=== PATIENT | male | born 1950 | race Caucasian/White ===

== ENCOUNTER 2018-12-16 19:14 | Emergency (ER) | payer MEDICARE, OTHER ==
[~2018-12-16] VITALS: Ht 175.3 cm; Wt 80.3 kg
[2018-12-16] MEDS ORDERED: IPRATRPIUM/ALBUTEROL 0.5/2.5MG 3 ML NEBU. NEB ONE (19:30)
--- NOTE | 2018-12-16 19:32 | PHYS DOC ---
Past History Past Medical History: COPD, Depression, Diabetes, High Cholesterol, Hypertension, Schizophrenia, Other Additional Past Medical Histor: diverticulosis, cholecystitis Smoking: Cigarettes Alcohol Use: None Drug Use: None Adult General Chief Complaint Chief Complaint: PSYCH EVALUATION HPI HPI Patient is a 68-year-old male presents for clearance for [facility]. History is limited from the patient due to his baseline mental function. Does note that he has some chest congestion. Denies any specific chest pain. Nothing seems to make this better or worse. He is uncertain as to why he is in the emergency department tonight. From information from [facility], patient feels he is having a mental breakdown, asking for Haldol, he burned himself with a cigarette because he is feeling suicidal, disorganized, anxious, worried. This started approximately 2-3 days ago.[] Review of Systems Review of Systems Constitutional: Denies fever or chills [] Eyes: Denies change in visual acuity, redness, or eye pain [] HENT: Denies nasal congestion or sore throat [] Respiratory: See history of present illness, he took an "albuterol and Haldol" breathing treatment prior to leaving the [facility] care facility where he normally resides[] Cardiovascular: No chest pain or palpitations[] GI: Denies abdominal pain, nausea, vomiting, bloody stools or diarrhea [] : Denies dysuria or hematuria [] Musculoskeletal: Denies back pain or joint pain [] Integument: Denies rash or skin lesions [] Neurologic: Denies headache, focal weakness or sensory changes [] Endocrine: Denies polyuria or polydipsia [] All other systems were reviewed and found to be within normal limits, except as documented in this note. Physical Exam Physical Exam Constitutional: Well developed, well nourished, no acute distress, non-toxic appearance. [] HENT: Normocephalic, atraumatic, bilateral external ears normal, oropharynx moist, no oral exudates, nose normal. [] Eyes: PERRLA, EOMI, conjunctiva normal, no discharge. [] Neck: Normal range of motion, no tenderness, supple, no stridor. [] Cardiovascular:Heart rate regular rhythm, no murmur [] Lungs & Thorax: Coarse breath sounds throughout, no increased work of breathing[] Abdomen: Bowel sounds normal, soft, no tenderness, no masses, no pulsatile masses. [] Skin: Warm, dry, no erythema, no rash. [] Back: No tenderness, no CVA tenderness. [] Extremities: No tenderness, no cyanosis, no clubbing, ROM intact, 1-2+ pretibial edema bilateral lower extremities. [] Neurologic: Alert and oriented X 2, normal motor function, normal sensory function, no focal deficits noted. [] Psychologic: Affect normal, judgement normal, mood normal. [] Current Patient Data Lab Results Laboratory Tests Test 12/16/18 19:30 White Blood Count 12.1 x10^3/uL Red Blood Count 4.76 x10^6/uL Hemoglobin 16.3 g/dL Hematocrit 47.5 % Mean Corpuscular Volume 100 fL Mean Corpuscular Hemoglobin 34 pg Mean Corpuscular Hemoglobin Concent 34 g/dL Red Cell Distribution Width 13.7 % Platelet Count 217 x10^3/uL Neutrophils (%) (Auto) 86 % Lymphocytes (%) (Auto) 7 % Monocytes (%) (Auto) 6 % Eosinophils (%) (Auto) 0 % Basophils (%) (Auto) 1 % Neutrophils # (Auto) 10.4 x10^3uL Lymphocytes # (Auto) 0.9 x10^3/uL Monocytes # (Auto) 0.8 x10^3/uL Eosinophils # (Auto) 0.0 x10^3/uL Basophils # (Auto) 0.1 x10^3/uL Segmented Neutrophils % 78 % Band Neutrophils % 3 % Lymphocytes % 10 % Monocytes % 8 % Eosinophils % 0 % Basophils % 0 % Myelocytes % 1 % Platelet Estimate Adequate Platelet Clumps, EDTA Present Prothrombin Time 10.8 SEC Prothromb Time International Ratio 1.0 Activated Partial Thromboplast Time 26 SEC Urine Collection Type Unknown Urine Color Rufina Urine Clarity Clear Urine pH 5.5 Urine Specific [place] 1.020 Urine Protein 100 mg/dl Urine Glucose (UA) >=1000 mg/dL Urine Ketones (Stick) 15 mg/dL Urine Blood Neg Urine Nitrite Neg Urine Bilirubin Neg Urine Urobilinogen Dipstick 0.2 mg/dL Urine Leukocyte Esterase Neg Urine RBC 0 /HPF Urine WBC 1-4 /HPF Urine Squamous Epithelial Cells Occ /LPF Urine Amorphous Sediment Present /HPF Urine Bacteria 0 /HPF Urine Hyaline Casts Occ /HPF Urine Granular Casts Occ /HPF Sodium Level 135 mmol/L Potassium Level 3.6 mmol/L Chloride Level 98 mmol/L Carbon Dioxide Level 26 mmol/L Anion Gap 11 Blood Urea Nitrogen 29 mg/dL Creatinine 1.2 mg/dL Estimated GFR (Cockcroft-Gault) 60.0 BUN/Creatinine Ratio 24 Glucose Level 296 mg/dL Lactic Acid Level 1.6 mmol/L Calcium Level 9.1 mg/dL Magnesium Level 1.8 mg/dL Total Bilirubin 0.5 mg/dL Aspartate Amino Transf (AST/SGOT) 29 U/L Alanine Aminotransferase (ALT/SGPT) 32 U/L Alkaline Phosphatase 109 U/L Troponin I Quantitative 0.018 ng/mL QP-Byk-A-Type Natriuretic Peptide 481 pg/mL Total Protein 6.7 g/dL Albumin 3.1 g/dL Albumin/Globulin Ratio 0.9 Lipase 971 U/L Urine Opiates Screen Neg Urine Methadone Screen Neg Urine Barbiturates Neg Urine Phencyclidine Screen Neg Urine Amphetamine/Methamphetamine Neg Urine Benzodiazepines Screen Neg Urine Cocaine Screen Neg Urine Cannabinoids Screen Neg Urine Ethyl Alcohol Neg Current Medications Medications (Trade) Dose Ordered Sig/Janis Route PRN Reason Start Time Stop Time Status Last Admin Dose Admin Albuterol/ Ipratropium (Duoneb) 3 ml 1X ONCE NEB 12/16/18 19:30 12/16/18 19:58 DC 12/16/18 19:45 Piperacillin Sod/ Tazobactam Sod (Zosyn Per Pharmacy) 1 each 1X STAT MC 12/16/18 19:50 12/16/18 20:03 DC Vancomycin HCl (Vanco Per Pharmacy) 1 each 1X STAT MC 12/16/18 19:50 12/16/18 20:03 DC Levofloxacin/ Dextrose (Levaquin Per Pharmacy) 1 each 1X STAT MC 12/16/18 19:50 12/16/18 20:03 DC Iohexol (Omnipaque 300 Mg/ml) 75 ml 1X ONCE IV 12/16/18 20:15 12/16/18 20:16 DC 12/16/18 20:23 Piperacillin Sod/ Tazobactam Sod 4.5 gm/Sodium Chloride 50 ml @ 100 mls/hr 1X ONCE IV 12/16/18 20:15 12/16/18 20:44 DC 12/16/18 20:18 Vancomycin HCl 2 gm/Sodium Chloride 500 ml @ 250 mls/hr 1X ONCE IV 12/16/18 21:00 12/16/18 22:59 DC 12/16/18 21:24 Levofloxacin/ Dextrose 150 ml @ 100 mls/hr 1X ONCE IV 12/16/18 21:00 12/16/18 22:29 DC 12/16/18 21:24 Info (Do NOT chart on this entry -- for MONITORING) 1 each PRN DAILY PRN MC SEE COMMENTS 12/16/18 20:15 12/18/18 20:14 Sodium Chloride 50 ml @ As Directed STK-MED ONCE .ROUTE 12/16/18 20:13 12/16/18 20:13 DC Piperacillin Sod/ Tazobactam Sod (Zosyn) 4.5 gm STK-MED ONCE IV 12/16/18 20:13 12/16/18 20:13 DC Sodium Chloride 1,000 ml @ 1,000 mls/hr 1X ONCE IV 12/16/18 20:30 12/16/18 21:29 DC 12/16/18 20:40 EKG EKG EKG shows a sinus rhythm with PVCs, right superior axis deviation, QTC 423 ms, no ST elevations. No old EKG available for comparison. Interpreted by me at 1929[] Radiology/Procedures Radiology/Procedures Portable chest x-ray shows left-sided mass versus infiltrate as interpreted by me PROCEDURE: PORTABLE CHEST 1V Exam: Chest one view INDICATION: Cough TECHNIQUE: Frontal view of the chest Comparisons: None FINDINGS: The cardiomediastinal silhouette and pulmonary vessels are within normal limits. 8.8 cm mass in the left upper lung. No pleural effusion. IMPRESSION: Large approximately 9 cm mass at the left upper lung with likely postobstructive infectious changes at the left apex. PROCEDURE: CT CHEST W/CONTRAST Exam: CT chest with contrast INDICATION: Lung mass TECHNIQUE: Sequential axial images through the chest obtained following the administration of 75 mL of Omni 300 IV contrast. Sagittal and coronal reformatted images were reconstructed from the axial data and reviewed. Comparisons: Radiograph same day FINDINGS: There is a multilobulated mass within the left upper lobe measuring approximately 11.0 x 10.6 cm. Mass encases the left pulmonary artery which is severely attenuated as it branches into the left upper lobe. Mass also abuts the aortic arch. Visualized portions of the thyroid are unremarkable. Several prominent but not enlarged right pretracheal lymph nodes are noted. There is an enlarged retroesophageal node series 4 image 41 measuring 1.4 cm in short axis. Heart size is normal. No pericardial effusion. Thoracic aorta has a normal course and caliber. Pulmonary artery is not enlarged. There is occlusion of the left upper lobe bronchus secondary to the aforementioned mass. Otherwise, Airways are patent. No pneumothorax. Patchy opacity within the left upper lobe peripheral to the mass, likely postobstructive infection. 8mm nodule right upper lobe series 4 image 34. Mild centrilobular emphysematous change noted within the lungs. No pleural effusion. Several enhancing nodules noted within the left posterior costophrenic angle, as well as along the left posterior pleura. Gallstones are within the gallbladder. Masslike thickening of the left adrenal gland is noted. No suspicious osseous lesions or acute fractures. IMPRESSION: 1. Approximately 11.0 x 10.6 cm mass in the left upper lobe which encases the left pulmonary artery and occludes the left upper lobe bronchus. 2. Airspace disease in the more peripheral left upper lobe, favored to BE postinfectious etiology. 3. Several left pleural-based nodules, favored to be metastatic in etiology. 4. Additionally, there is mediastinal lymphadenopathy as described above. 5. Masslike at thickening of the left adrenal gland. 6. There is a 8 mm nodule in the right upper lobe as described above. 7. Cholelithiasis Course & Med Decision Making Course & Med Decision Making Pertinent Labs and Imaging studies reviewed. (See chart for details) ED course: Patient arrived, was placed in bed, and tolerated exam well. IV access was established and he was given a breathing treatment due to the breath sounds auscultated. This did not significantly improve his coarse breath sounds. Chest x-ray findings were noted showing large infiltrate versus mass, especially given his smoking history, were of concern along with possible healthcare associated pneumonia since he does live at an assisted care facility. He was transported to and from [place]. Antibiotics were started empirically for possibility of aspiration versus healthcare associated pneumonia. His elevated lipase additionally was noted and additional IV fluids were started for that. [facility]. Consultation is made with the hospitalist service for admission for further evaluation and treatment. Due to the need for specialties not available at [facility] such as oncology, GI, pulmonary, and infectious disease, it was elected to transport the patient to [facility] where these specialties are available. Discussed findings with patient who voiced understanding. All questions were answered. He was transported in improved condition. Medical decision making: Patient appears to have left-sided lung mass with a postobstructive infection. He is being given antibiotics to cover for healthcare associated pneumonia. He also has pancreatitis and cholelithiasis. Without abdominal pain, do not believe him to have cholecystitis. His glucose is elevated, it does not appear that he is in diabetic ketoacidosis.[] Dragon Disclaimer Dragon Disclaimer This electronic medical record was generated, in whole or in part, using a voice recognition dictation system. Departure Departure: Impression: Primary Impression: Mass of left lung Additional Impressions: Postobstructive pneumonia Pancreatitis Diabetes mellitus Disposition: 05 TRANSFER OTHER Admitting Physician: Ahmet Burris Condition: IMPROVED Referrals: PCP,UNKNOWN (PCP) Problem Qualifiers Additional Impressions: Pancreatitis Chronicity: acute Pancreatitis type: unspecified pancreatitis type Acute pancreatitis complication: unspecified Qualified Codes: K85.90 - Acute pancreatitis without necrosis or infection, unspecified Diabetes mellitus Diabetes mellitus type: type 2 Diabetes mellitus [facility] insulin use: unspecified [facility] insulin use status Diabetes mellitus complication status: with hyperglycemia Qualified Codes: E11.65 - Type 2 diabetes mellitus with hyperglycemia ANDREINA BENITEZ DO Dec 16, 2018 19:32
[2018-12-16] MEDS ORDERED: PIP/TAZO PER PHARMACY MC STA (19:50)
[2018-12-16] MEDS ORDERED: VANCOMYCIN PER PHARMACY MC STA (19:50)
[2018-12-16 19:55] LABS: BASO # 0.1 x10^3/uL (0.0-0.2); BASO % 1 % (0-3); EOS % 0 % (0-3); HEMATOCRIT 47.5 % (39.0-53.0); HEMOGLOBIN 16.3 g/dL (13.0-17.5); LYMPH # 0.9 x10^3/uL (1.0-4.8); LYMPH % 7 % (24-48); MEAN CORPUSCULAR HEMOGLOBIN 34 pg (25-35); MEAN CORPUSCULAR HGB CONC 34 g/dL (31-37); MEAN CORPUSCULAR VOLUME 100 fL (79-100); MONO # 0.8 x10^3/uL (0.0-1.1); MONO % 6 % (0-9); NEUT # 10.4 x10^3uL (1.8-7.7); NEUT % 86 % (31-73); PLATELET COUNT 217 x10^3/uL (140-400); RED BLOOD COUNT 4.76 x10^6/uL (4.30-5.70); RED CELL DISTRIBUTION WIDTH 13.7 % (11.5-14.5); WHITE BLOOD COUNT 12.1 x10^3/uL (4.0-11.0)
[2018-12-16 20:00] LABS: BARBITURATES NEG (NEG); BENZODIAZEPINES NEG (NEG); CANNABINOIDS NEG (NEG); COCAINE NEG (NEG); METHADONE NEG (NEG); OPIATES NEG (NEG); PHENCYCLIDINE NEG (NEG)
[2018-12-16 20:02] LABS: AMPHETAMINE/METHAMPHETAMINE NEG (NEG)
[2018-12-16 20:06] LABS: BILIRUBIN,URINE NEG (NEG); CLARITY,URINE CLEAR; COLOR,URINE AMBER; GLUCOSE,URINE >=1000 mg/dL (NEG)
[2018-12-16 20:07] LABS: AMORPHOUS SEDIMENT,UR PRESENT /HPF; BACTERIA,URINE 0 /HPF (0-FEW); GRANULAR CASTS,URINE OCC /HPF; HYALINE CASTS, URINE OCC /HPF; NITRITE,URINE NEG (NEG); RBC,URINE 0 /HPF (0-2); SQUAMOUS EPITHELIAL CELL,UR OCC /LPF; UROBILINOGEN,URINE 0.2 mg/dL (0.2 mg/dL)
[2018-12-16 20:13] LABS: ALBUMIN 3.1 g/dL (3.4-5.0); ALBUMIN/GLOBULIN RATIO 0.9 (1.0-1.7); CALCIUM 9.1 mg/dL (8.5-10.1); CREATININE 1.2 mg/dL (0.7-1.3); MAGNESIUM 1.8 mg/dL (1.8-2.4); POTASSIUM 3.6 mmol/L (3.5-5.1); TOTAL BILIRUBIN 0.5 mg/dL (0.2-1.0); TOTAL PROTEIN 6.7 g/dL (6.4-8.2)
[2018-12-16] MEDS ORDERED: IV NORMAL SALINE 50ML 50 ML ONE (20:13)
[2018-12-16] MEDS ORDERED: PIPERACILLIN/TAZOBACTAM 4.5 GM VIAL IV ONE (20:13)
[2018-12-16] MEDS ORDERED: PIPERACILLIN/TAZOBACTAM 4.5 GM in IV NORMAL SALINE 50ML 50 ML IV ONE (20:15)
[2018-12-16] MEDS ORDERED: IOHEXOL 300 MG/ML 75 ML VIAL. IV ONE (20:15)
[2018-12-16] MEDS ORDERED: CONTRAST GIVEN MC PRN (20:15)
[2018-12-16] MEDS ORDERED: IV NORMAL SALINE 1,000ML 1,000 ML IV ONE (20:30)
[2018-12-16 20:45] LABS: % BANDS 3 % (0-9); % EOS 0 % (0-5); % LYMPHS 10 % (24-48); % MONOS 8 % (0-10); % SEGS 78 % (35-66)
[2018-12-16 20:46] LABS: % BASOS 0 % (0-3); % MYELOS 1 % (0-0); PLATELET CLUMP PRESENT; PLT ESTIMATE ADEQUATE (ADEQUATE)
[2018-12-16] MEDS ORDERED: VANCOMYCIN 2 GM in IV NORMAL SALINE 500ML 500 ML IV ONE (21:00)
--- NOTE | 2018-12-16 21:03 | RAD ---
Exam: Chest one view INDICATION: Cough TECHNIQUE: Frontal view of the chest Comparisons: None FINDINGS: The cardiomediastinal silhouette and pulmonary vessels are within normal limits. 8.8 cm mass in the left upper lung. No pleural effusion. IMPRESSION: Large approximately 9 cm mass at the left upper lung with likely postobstructive infectious changes at the left apex. Electronically signed by: Laisha Ruiz MD (12/16/2018 9:01 PM) [id number]
--- NOTE | 2018-12-16 21:16 | RAD ---
Exam: CT chest with contrast INDICATION: Lung mass TECHNIQUE: Sequential axial images through the chest obtained following the administration of 75 mL of Omni 300 IV contrast. Sagittal and coronal reformatted images were reconstructed from the axial data and reviewed. Comparisons: Radiograph same day FINDINGS: There is a multilobulated mass within the left upper lobe measuring approximately 11.0 x 10.6 cm. Mass encases the left pulmonary artery which is severely attenuated as it branches into the left upper lobe. Mass also abuts the aortic arch. Visualized portions of the thyroid are unremarkable. Several prominent but not enlarged right pretracheal lymph nodes are noted. There is an enlarged retroesophageal node series 4 image 41 measuring 1.4 cm in short axis. Heart size is normal. No pericardial effusion. Thoracic aorta has a normal course and caliber. Pulmonary artery is not enlarged. There is occlusion of the left upper lobe bronchus secondary to the aforementioned mass. Otherwise, Airways are patent. No pneumothorax. Patchy opacity within the left upper lobe peripheral to the mass, likely postobstructive infection. 8mm nodule right upper lobe series 4 image 34. Mild centrilobular emphysematous change noted within the lungs. No pleural effusion. Several enhancing nodules noted within the left posterior costophrenic angle, as well as along the left posterior pleura. Gallstones are within the gallbladder. Masslike thickening of the left adrenal gland is noted. No suspicious osseous lesions or acute fractures. IMPRESSION: 1. Approximately 11.0 x 10.6 cm mass in the left upper lobe which encases the left pulmonary artery and occludes the left upper lobe bronchus. 2. Airspace disease in the more peripheral left upper lobe, favored to BE postinfectious etiology. 3. Several left pleural-based nodules, favored to be metastatic in etiology. 4. Additionally, there is mediastinal lymphadenopathy as described above. 5. Masslike at thickening of the left adrenal gland. 6. There is a 8 mm nodule in the right upper lobe as described above. 7. Cholelithiasis Exposure: One or more of the following in the visualized dose reduction techniques were utilized for this examination: 1. Automated exposure control 2. Adjustment of the MA and/or KV according to patient size 3. Use of iterative of reconstructive technique Electronically signed by: Laisha Ruiz MD (12/16/2018 9:13 PM) [facility]
[2018-12-16 22:58] VITALS: BP 134/74
--- NOTE | 2018-12-17 07:20 | EKG ---
[address] [address] Test Date: 2018-12-16 Test Time: 19:29:48 Pat Name: THI JONES Department: Room: Gender: M Mail Order Sorter: : 1950 Requested By: ANDREINA BENITEZ Order Number: [id number] Reading MD: Measurements Intervals [place] Rate: 94 P: 1 NC: 134 QRS: -129 QRSD: 92 T: 39 QT: 334 QTc: 423 Interpretive Statements SINUS RHYTHM ATRIAL PREMATURE COMPLEX(ES) ABNORMAL RIGHT SUPERIOR AXIS DEVIATION R-S TRANSITION ZONE IN V LEADS DISPLACED TO THE LEFT QRS(T) CONTOUR ABNORMALITY CONSIDER ANTEROSEPTAL MYOCARDIAL DAMAGE ABNORMAL ECG RI6.01 No previous ECG available for comparison
== END 2018-12-17 00:08 | disposition short-term general hospital (02) ==
LOC: ER 19:14
DX: J95.89 Other postprocedural complications and disorders of respiratory system, not elsewhere classified (principal); R91.8 Other nonspecific abnormal finding of lung field; K85.90 Acute pancreatitis without necrosis or infection, unspecified; E11.65 Type 2 diabetes mellitus with hyperglycemia; R45.851 Suicidal ideations; J44.9 Chronic obstructive pulmonary disease, unspecified; E78.00 Pure hypercholesterolemia, unspecified; I10 Essential (primary) hypertension; F20.9 Schizophrenia, unspecified; F17.210 Nicotine dependence, cigarettes, uncomplicated
CPT/HCPCS: 36415; 71045; 71260; 80053; 80307; 81001; 83605; 83690; 83735; 83880; 84484; 85007; 85025; 85610; 85730; 87040; 93005; 94640; 96365; 96367; 96368; 99285; J1956; J2543; J3370; J7040; J7620; Q9967; J7030